=== PATIENT | female | born 1930 | race Hispanic/Latino ===

== ENCOUNTER 2018-05-30 16:05 | Emergency (ER) | payer MEDICARE ==
[2018-05-30 16:17] VITALS: RESP 18; TEMP 98.4; O2SAT 97
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
--- NOTE | 2018-05-30 17:26 | CT ---
Date of service: 05/30/2018 PROCEDURE: CT HEAD WITHOUT CONTRAST. HISTORY: dizziness COMPARISON: None available. TECHNIQUE: Axial computed tomography images were obtained through the head/brain without intravenous contrast. Radiation dose: Total exam DLP = 1609.9 mGy-cm. This CT exam was performed using one or more of the following dose reduction techniques: Automated exposure control, adjustment of the mA and/or kV according to patient size, and/or use of iterative reconstruction technique. FINDINGS: HEMORRHAGE: No intracranial hemorrhage. BRAIN: Good corticomedullary differentiation is seen. Proportional, diffuse expansion of the ventriculosulcal and cisternal spaces is appreciated with white matter lucency compatible with diffuse cerebral atrophy and chronic microangiopathy. No suspicious extra-axial fluid collection is identified and the midline brain anatomy appears grossly nonfocal as imaged. There is no mass effect throughout. Dilated perivascular space is favored over chronic lacune at the inferior left basal ganglia and bilateral basal ganglia calcifications are identified. VENTRICLES: Unremarkable. No hydrocephalus. CALVARIUM: Unremarkable. PARANASAL SINUSES: Multifocal inflammatory mucosal changes seen affecting ethmoid air cells limited sinusitis of the right sphenoid sinus. MASTOID AIR CELLS: Unremarkable as visualized. No inflammatory changes. OTHER FINDINGS: None. IMPRESSION: Age-related degenerative findings are appreciated without definite acute findings by standard CT criteria. Follow-up CT or MRI are available if clinically warranted. Limited sinus disease as discussed above.
[2018-05-30 17:29] LABS: BASO % 0.6 % (0.0-2.0); EOS # 0.2 K/uL (0.0-0.7); EOS % 2.3 % (0.0-4.0); HEMOGLOBIN 12.6 g/dL (11.0-16.0); LYMPH # 1.3 K/uL (1.0-4.3); LYMPH % 16.1 % (20.0-40.0); MEAN CELL VOLUME 92.7 fL (81.0-99.0); MEAN CORPUSCULAR HEMOGLOBIN 31.3 pg (27.0-31.0); MEAN CORPUSCULAR HGB CONC 33.8 g/dL (33.0-37.0); MEAN PLATELET VOLUME 7.7 fL (7.2-11.7); MONO # 0.8 K/uL (0.0-0.8); MONO % 9.6 % (0.0-10.0); NEUT # 5.6 K/uL (1.8-7.0); NEUT % 71.4 % (50.0-75.0); RBC 4.02 Mil/uL (3.80-5.20); RED CELL DISTRIBUTION WIDTH 13.2 % (11.5-14.5); WHITE BLOOD COUNT 7.8 K/uL (4.8-10.8)
--- NOTE | 2018-05-30 17:33 | RAD ---
Date of service: 05/30/2018 HISTORY: SOB COMPARISON: None available. FINDINGS: LUNGS: No active pulmonary disease. PLEURA: No significant pleural effusion identified, no pneumothorax apparent. CARDIOVASCULAR: No aortic atherosclerotic calcification present. Prominent appearing cardiac silhouette. This may be a function of technical magnification given frontal technique. No pulmonary vascular congestion. OSSEOUS STRUCTURES: No significant abnormalities. VISUALIZED UPPER ABDOMEN: Normal. OTHER FINDINGS: None. IMPRESSION: Questionable cardiomegaly. No pulmonary vascular congestion. No infiltrate bilaterally.
[2018-05-30 17:39] LABS: ALB/GLOB RATIO 1.3 (1.0-2.1); ALBUMIN 4.2 g/dL (3.5-5.0); ALT/SGPT 23 U/L (9-52); AST/SGOT 21 U/L (14-36); BLOOD UREA NITROGEN 21 mg/dL (7-17); CALCIUM 9.3 mg/dl (8.6-10.4); GFR NON-AFRICAN AMERICAN > 60
[2018-05-30] MEDS ORDERED: Labetalol 25mg/5ml Syringe IVP STA (18:08)
[2018-05-30] MEDS ORDERED: Labetalol 5mg/ml (4ml) ONE (18:20)
[2018-05-30 18:37] VITALS: PULSE 77
[2018-05-30 19:00] VITALS: BP 188/92
--- NOTE | 2018-05-31 21:41 | CARD ---
APPROVED REPORT Date of service: 05/30/2018 EKG Measurement Heart [id number] <Conclusion> Sinus rhythm with 1st degree AV block Otherwise normal ECG
== END 2018-05-30 18:59 | disposition home or self-care (01) ==
LOC: C.ER 16:05
DX: I10 Essential (primary) hypertension (principal); S00.81XA Abrasion of other part of head, initial encounter; W01.0XXA Fall on same level from slipping, tripping and stumbling without subsequent striking against object, initial encounter

== ENCOUNTER 2018-10-20 12:34 | Emergency (ER) | payer MEDICARE ==
[2018-10-20 12:51] VITALS: RESP 20
--- NOTE | 2018-10-20 13:38 | C.PDOC ---
History Of Present Illness 88 year old female presents to the ED complaining of dull ache mostly located behind right eye for one week. Reports the pain is intermittent and has been progressively getting worse. States she was seen by PMD Dr. Ko but no test ing was done. Pain is associated with decreased vision from that eye. Also complains of thick and clear nasal discharge. Denies any other symptoms. Time Seen by Provider: 10/20/18 13:10 Chief Complaint (Nursing): Dizziness/Lightheaded History Per: Patient History/Exam Limitations: no limitations Onset/Duration Of Symptoms: Days, Intermittent Episodes Current Symptoms Are (Timing): Worse Seizure Or Post-ictal Symptoms: None Fall Associated With With Symptoms: No Past Medical History Reviewed: Historical Data, Nursing Documentation, Vital Signs Vital Signs: Last Vital Signs Temp 99.2 F 10/20/18 12:48 Pulse 81 10/20/18 12:48 Resp 20 10/20/18 12:48 BP 161/94 H 10/20/18 12:48 Pulse Ox 97 10/20/18 12:48 - Medical History PMH: HTN Surgical History: Tonsillectomy Family History: States: No Known Family Hx - Social History Hx Alcohol Use: No Hx Substance Use: No - Immunization History Hx Tetanus Toxoid Vaccination: No Hx Influenza Vaccination: No Hx Pneumococcal Vaccination: No Review Of Systems Constitutional: Negative for: Fever, Chills Eyes: Positive for: Pain, Vision Change ENT: Positive for: Nose Discharge Cardiovascular: Negative for: Chest Pain Respiratory: Negative for: Shortness of Breath Gastrointestinal: Negative for: Nausea, Vomiting, Abdominal Pain, Diarrhea Musculoskeletal: Negative for: Back Pain Neurological: Positive for: Headache. Negative for: Weakness, Numbness Physical Exam - Physical Exam Appears: Non-toxic, No Acute Distress Skin: Warm, Dry, No Rash Head: Normacephalic, Tenderness (right orbital and right maxillary sinus ) Eye(s): bilateral: PERRL, Other (Constricted pupils 2mm, reactive ) Ear(s): Bilateral: Normal Nose: Discharge (clear) Oral Mucosa: Moist Neck: Supple Chest: Symmetrical Cardiovascular: Rhythm Regular Respiratory: Normal Breath Sounds, No Rales, No Rhonchi, No Wheezing Gastrointestinal/Abdominal: Soft, No Tenderness, No Guarding, No Rebound Extremity: Bilateral: No Pedal Edema, Normal Color And Temperature, Normal ROM Neurological/Psych: Oriented x3, Normal Speech Gait: Steady ED Course And Treatment - Laboratory Results Result Diagrams: 10/20/18 13:54 10/20/18 13:54 Lab Interpretation: No Acute Changes O2 Sat by Pulse Oximetry: 97 (RA) Pulse Ox Interpretation: Normal - CT Scan/US sinuses Other Rad Studies (CT/US): Read By Radiologist, Radiology Report Reviewed CT/US Interpretation: Accession No. : [id number]. Patient Name / ID : RASHARD RAMÍREZ / [id number]. Exam Date : 10/20/2018 13:36:50 ( Approved ). Study Comment : Sex / Age : F / 88Y. Creator : Debbie Wheeler. Dictator : Magy Kothari MD. Lockstitch Binder : Tumbler Operator : Magy Kothari MD. Approver2 : Report Date : 10/20/2018 13:58:28. My Comment : . Date of service: 10/20/2018. PROCEDURE: CT SINUSES WITHOUT CONTRAST. HISTORY: right maxillary and periorbital pain. COMPARISON: Comparison is made to the previous CT of the head dated 05/30/2018. TECHNIQUE: Contiguous axial CT images of the paranasal sinuses were obtained. Coronal and sagittal reformats were generated. Radiation dose: Total exam DLP = 670.82 mGy-cm. This CT exam was performed using one or more of the following dose reduction techniques: Automated exposure control, adjustment of the mA and/or kV according to patient size, and/or use of iterative reconstruction technique. FINDINGS: FRONTAL SINUSES: No evidence of significant mucosal thickening. ETHMOID SINUSES: Mucosal thickening noted. SPHENOID SINUSES: Moderate mucosal thickening and secretions noted in both sphenoid sinuses left more than right. MAXILLARY SINUSES: Mild to moderate mucosal thickening at the inferior aspect of the right maxillary sinus is noted. SINUS DRAINAGE: Osteomeatal complexes, frontal recesses and sphenoethmoid recesses clear. NASAL SEPTUM: No significant deviation. No destructive lesion. There is a small fracture at the posterior left nasal bone likely old. MASS: None. SKULL BASE: Unremarkable. TEMPORAL BONES: Middle ears and mastoid grossly unremarkable. OTHER FINDINGS: None. IMPRESSION: Moderate mucosal thickening in the sphenoid sinuses as sociated with partial right and almost complete left sphenoid opacification. Mild mucosal thickening of the ethmoid sinuses. [id number]-[id number] mucosal thickening of the right maxillary sinus. CT Head Other Rad Studies (CT/US): Read By Radiologist, Radiology Report Reviewed CT/US Interpretation: Accession No. : [id number]. Patient Name / ID : RASHARD RAMÍREZ / [id number]. Exam Date : 10/20/2018 15:43:59 ( Approved ). Study Comment : Sex / Age : F / 88Y. Creator : Debbie Wheeler. Dictator : Mar Conte MD. Lockstitch Binder : Tumbler Operator : Mar Conte MD. Approver2 : Report Date : 10/20/2018 15:57:05. My Comment : * . Date of service: 10/20/2018. PROCEDURE: CT HEAD WITHOUT CONTRAST. HISTORY: headache. COMPARISON: Noncontrast head CT 05/30/18. TECHNIQUE: Axial computed tomography images were obtained through the head/brain without intravenous contrast. Radiation dose: Total exam DLP = 1084.86 mGy-cm. This CT exam was performed using one or more of the following dose reduction techniques: Automated exposure control, adjustment of the mA and/or kV according to patient size, and/or use of iterative reconstruction technique. FINDINGS: HEMORRHAGE: No intracranial hemorrhage. BRAIN: Diffuse atrophy with prominence of the ventricles and sulci noted. No mass effect or edema. Intracranial atherosclerosis. Moderate scattered periventricular and subcortical white matter hypodensities, which are nonspecific, but often seen with chronic microvascular ischemic disease. Please note that MRI with diffusion imaging is more sensitive in the detection of acute ischemic event. VENTRICLES: No hydrocephalus. CALVARIUM: Unremarkable. PARANASAL SINUSES: Unremarkable as visualized. No significant inflammatory changes. MASTOID AIR CELLS: Unremarkable as visualized. No inflammatory changes. OTHER FINDINGS: None. IMPRESSION: Generalized atrophy. Nonspecific white matter changes. Reevaluation Time: 14:39 Reassessment Condition: Unchanged - Physician Consult Information Time Consulting Physician Contacted: 14:39 Physician Contacted: Andrés Ko Outcome Of Conversation: Patient to be treated with antibiotics and he will follow up with her in his office. Medical Decision Making Medical Decision Making: Plan - CT HEAD - CT Sinuses - Bloodwork - UA Disposition Counseled Patient/Family Regarding: Studies Performed, Diagnosis, Need For Followup, Rx Given - Disposition Referrals: Andrés Ko MD [Staff Provider] - Disposition: HOME/ ROUTINE Disposition Time: 16:44 Condition: STABLE Prescriptions: Amoxicillin/Clavulanate [Augmentin 875 MG-125 MG] 1 tab PO BID #14 tab Instructions: Sinusitis, Adult (DC), Sinus Headache (DC) Forms: [employer] (Ugandan) - Clinical Impression Clinical Impression: Sinusitis, Headache - Scribe Statement The provider has reviewed the documentation as recorded by the Scribe Kinjal Lozano All medical record entries made by the Scribe were at my direction and personal ly dictated by me. I have reviewed the chart and agree that the record accurately reflects my personal performance of the history, physical exam, medical decision making, and the department course for this patient. I have also personally directed, reviewed, and agree with the discharge instructions and disposition.
[2018-10-20 14:00] LABS: BASO # 0.1 K/uL (0.0-0.2); BASO % 0.8 % (0.0-2.0); EOS # 0.1 K/uL (0.0-0.7); EOS % 1.8 % (0.0-4.0); HEMOGLOBIN 12.3 g/dL (11.0-16.0); LYMPH # 1.1 K/uL (1.0-4.3); LYMPH % 18.4 % (20.0-40.0); MEAN CELL VOLUME 92.5 fL (81.0-99.0); MEAN CORPUSCULAR HEMOGLOBIN 31.2 pg (27.0-31.0); MEAN CORPUSCULAR HGB CONC 33.7 g/dL (33.0-37.0); MEAN PLATELET VOLUME 7.8 fL (7.2-11.7); MONO # 0.6 K/uL (0.0-0.8); MONO % 10.5 % (0.0-10.0); NEUT # 4.2 K/uL (1.8-7.0); NEUT % 68.5 % (50.0-75.0); RBC 3.94 Mil/uL (3.80-5.20); RED CELL DISTRIBUTION WIDTH 13.1 % (11.5-14.5); WHITE BLOOD COUNT 6.1 K/uL (4.8-10.8)
[2018-10-20 14:15] LABS: ALB/GLOB RATIO 1.3 (1.0-2.1); ALBUMIN 4.2 g/dL (3.5-5.0); ALT/SGPT 11 U/L (9-52); AST/SGOT 31 U/L (14-36); BLOOD UREA NITROGEN 17 mg/dL (7-17); CALCIUM 9.5 mg/dl (8.6-10.4); GFR NON-AFRICAN AMERICAN > 60
--- NOTE | 2018-10-20 14:31 | CT ---
Date of service: 10/20/2018 PROCEDURE: CT SINUSES WITHOUT CONTRAST HISTORY: right maxillary and periorbital pain COMPARISON: Comparison is made to the previous CT of the head dated 05/30/2018 TECHNIQUE: Contiguous axial CT images of the paranasal sinuses were obtained. Coronal and sagittal reformats were generated. Radiation dose: Total exam DLP = 670.82 mGy-cm. This CT exam was performed using one or more of the following dose reduction techniques: Automated exposure control, adjustment of the mA and/or kV according to patient size, and/or use of iterative reconstruction technique. FINDINGS: FRONTAL SINUSES: No evidence of significant mucosal thickening. ETHMOID SINUSES: Mucosal thickening noted. SPHENOID SINUSES: Moderate mucosal thickening and secretions noted in both sphenoid sinuses left more than right. MAXILLARY SINUSES: Mild to moderate mucosal thickening at the inferior aspect of the right maxillary sinus is noted. SINUS DRAINAGE: Osteomeatal complexes, frontal recesses and sphenoethmoid recesses clear. NASAL SEPTUM: No significant deviation. No destructive lesion. There is a small fracture at the posterior left nasal bone likely old. MASS: None. SKULL BASE: Unremarkable. TEMPORAL BONES: Middle ears and mastoid grossly unremarkable. OTHER FINDINGS: None. IMPRESSION: Moderate mucosal thickening in the sphenoid sinuses associated with partial right and almost complete left sphenoid opacification. Mild mucosal thickening of the ethmoid sinuses. Axzr-je-iehnwyso mucosal thickening of the right maxillary sinus.
[2018-10-20 15:09] LABS: SQUAMOUS EPITHIAL 1 /hpf (0-5); URINE BILIRUBIN NEGATIVE (NEGATIVE); URINE BLOOD 2+ (NEGATIVE); URINE CLARITY Clear (Clear); URINE COLOR Yellow (YELLOW); URINE GLUCOSE (UA) NORMAL (Normal); URINE LEUKOCYTE ESTERASE NEG Leu/uL (Negative); URINE PROTEIN NEGATIVE (NEGATIVE); URINE UROBILINOGEN NORMAL mg/dL (0.2-1.0)
--- NOTE | 2018-10-20 16:36 | CT ---
Date of service: 10/20/2018 PROCEDURE: CT HEAD WITHOUT CONTRAST. HISTORY: headache COMPARISON: Noncontrast head CT 05/30/18 TECHNIQUE: Axial computed tomography images were obtained through the head/brain without intravenous contrast. Radiation dose: Total exam DLP = 1084.86 mGy-cm. This CT exam was performed using one or more of the following dose reduction techniques: Automated exposure control, adjustment of the mA and/or kV according to patient size, and/or use of iterative reconstruction technique. FINDINGS: HEMORRHAGE: No intracranial hemorrhage. BRAIN: Diffuse atrophy with prominence of the ventricles and sulci noted. No mass effect or edema. Intracranial atherosclerosis. Moderate scattered periventricular and subcortical white matter hypodensities, which are nonspecific, but often seen with chronic microvascular ischemic disease. Please note that MRI with diffusion imaging is more sensitive in the detection of acute ischemic event. VENTRICLES: No hydrocephalus. CALVARIUM: Unremarkable. PARANASAL SINUSES: Unremarkable as visualized. No significant inflammatory changes. MASTOID AIR CELLS: Unremarkable as visualized. No inflammatory changes. OTHER FINDINGS: None. IMPRESSION: Generalized atrophy. Nonspecific white matter changes.
[2018-10-20 16:42] VITALS: BP 156/84; PULSE 84; TEMP 98.8
[2018-10-20 16:45] VITALS: O2SAT 97
== END 2018-10-20 17:07 | disposition home or self-care (01) ==
LOC: C.ER 12:34
DX: J32.9 Chronic sinusitis, unspecified (principal); R51 Headache